=== PATIENT | male | born 1990 | race Hispanic/Latino ===

== ENCOUNTER 2017-05-25 08:58 | Emergency (ER) | payer OTHER, BC ==
[2017-05-25 08:59] VITALS: BMI 30.8
[2017-05-25 09:16] VITALS: BP 142/92; TEMP 97.9
--- NOTE | 2017-05-25 10:06 | ED PDOC ---
Arrival/HPI - General Chief Complaint: Psychiatric Evaluation Time Seen by Provider: 05/25/17 09:14 Historian: Patient, Other (significant other) - History of Present Illness Narrative History of Present Illness (Text): 05/25/17 10:02 Patient is a 26 year old male presents to ED with complaint of feeling "like I' m getting angrier more often" as well as more persistently depressed. He denies any physical injury or trauma recently, denies homicidal or suicidal ideation. Denies using drugs or alcohol. States that since he served in [employer] in the in 2011, when he returned he has had issues with "PTSD" and has had "anger issues" and depression. He states he did seek treatment at the [facility] in the past but has not had a consistent psychiatrist or therapist since then. He does not take any medications currently. States that over the past several months he feels that his feelings of anger and depression have become more frequent, thus he presented to ED for evaluation. Denies headache, denies chest pain or shortness of breath currently. Denies visual symptoms. Past Medical History - Past History Past History: No Previous - Infectious Disease Hx of Infectious Diseases: None - Tetanus Immunization Tetanus Immunization: Unknown - Cardiac Hx Cardiac Disorders: No - Pulmonary Hx Respiratory Disorders: No - Neurological Hx Neurological Disorder: Yes Hx Migraine: Yes Hx Transient Ischemic Attacks (TIA): Yes Other/Comment: TBI - HEENT Hx HEENT Disorder: No - Renal Hx Renal Disorder: No - Endocrine/Metabolic Hx Endocrine Disorders: No - Hematological/Oncological Hx Blood Disorders: No - Integumentary Hx Dermatological Disorder: No - Musculoskeletal/Rheumatological Hx Musculoskeletal Disorders: Yes Hx Back Pain: Yes Hx Falls: No - Gastrointestinal Hx Gastrointestinal Disorders: No - Genitourinary/Gynecological Hx Genitourinary Disorders: No - Psychiatric Hx Psychophysiologic Disorder: Yes Hx Depression: Yes Hx Substance Use: No - Anesthesia Hx Anesthesia: No - Suicidal Assessment Feels Threatened In Home Enviroment: No Family/Social History Family/Social History: Unknown Family HX Smoking Status: Current Some Days Smoker Hx Alcohol Use: Yes (Drinks Beer/Wine Daily) Hx Substance Use: No Allergies/Home Meds Allergies/Adverse Reactions: Allergies No Known Allergies Allergy (Verified 05/25/17 09:16) Home Medications: Home Meds Medication Instructions Recorded Confirmed Acetaminophen/Butalbital/Caf 1 tab PO PRN PRN 05/25/17 05/25/17 [Fioricet] Aspirin [Aspirin Chewable] 81 mg PO DAILY 05/25/17 05/25/17 Atorvastatin [Lipitor] 40 mg PO DAILY 05/25/17 05/25/17 Cholecalciferol [Vitamin D] 50,000 iu PO MWF 05/25/17 05/25/17 Colesevelam HCl [Welchol] 625 mg PO BID 05/25/17 05/25/17 Dexlansoprazole [Dexilant] 60 mg PO BID 05/25/17 05/25/17 Topiramate [Topamax] 25 mg PO HS 05/25/17 05/25/17 Review of Systems - Review of Systems Constitutional: absent: Fatigue, Fevers Eyes: absent: Vision Changes, Eye Pain ENT: absent: Hearing Changes Respiratory: absent: SOB Cardiovascular: absent: Chest Pain Gastrointestinal: absent: Abdominal Pain, Nausea, Vomiting Genitourinary Male: absent: Dysuria Musculoskeletal: absent: Back Pain Skin: absent: Rash Neurological: absent: Headache, Dizziness, Focal Weakness Hemo/Lymphatic: absent: Easy Bleeding Psychiatric: Depression, Other (anger, no homicial ideation). absent: Anxiety, Suicidal Ideation Physical Exam Vital Signs Reviewed: Yes Vital Signs Temp Pulse Resp BP Pulse Ox 05/25/17 12:16 72 18 99 05/25/17 09:08 97.9 F 89 16 142/92 H 96 Temperature: Afebrile Appearance: Positive for: Non-Toxic Pain Distress: None Mental Status: Positive for: Alert and Oriented X 3 - Systems Exam Head: Present: Atraumatic Pupils: Present: PERRL Extroacular Muscles: Present: EOMI Mouth: Present: Moist Mucous Membranes Pharnyx: No: ERYTHEMA Neck: Present: Normal Range of Motion Respiratory/Chest: Present: Clear to Auscultation. No: Respiratory Distress Cardiovascular: Present: Regular Rate and Rhythm Abdomen: No: Distention Upper Extremity: Present: Normal ROM Lower Extremity: Present: Normal ROM Neurological: Present: Speech Normal, Motor Func Grossly Intact, Normal Sensory Function, Gait Normal Skin: Present: Warm Psychiatric: Present: Alert, Normal Insight, Normal Concentration, Anxious, Depressed Mood. No: Agitated, Suicidal Ideation, Homicidal Ideation, Hallucinations, Intoxicated Medical Decision Making ED Course and Treatment: Patient's history is supplemented by significant other at bedside. Patient is calm, cooperative in ED. Denies suicidal ideation. He is not aggressive or intoxicated in ED. There is no history of drug or alcohol abuse. No signs of acute trauma noted. He reports symptoms for several years, denies any acute stressors but states there has been a gradual worsening of symptoms. He states he currently does not see a therapist or psychiatrist. Currently does not take any medication. Patient was medically cleared for PES evaluation. Follow-up plan arranged with PES and patient. Patient requests medication until appointment next week. Xanax prescription discussed. Side effect profile reviewed. Will discharge with 3-4 day prescription for xanax. Disposition/Present on Arrival - Present on Arrival Any Indicators Present on Arrival: No History of DVT/PE: No History of Uncontrolled Diabetes: No Urinary Catheter: No History of Decub. Ulcer: No History Surgical Site Infection Following: None - Disposition Have Diagnosis and Disposition been Completed?: Yes Diagnosis: Anxiety Disposition: HOME/ ROUTINE Disposition Time: 12:00 Patient Plan: Discharge Condition: GOOD Additional Instructions: Follow-up with specialists as directed. For any headaches, chest pain, shortness of breath, unsteadiness, persistent or worsening of any symptoms, get rechecked. Take medication only as needed, only as directed until you follow-up with specialist. Do not drink or drive while taking this medication. Prescriptions: ALPRAZolam [Xanax] 0.25 mg PO BID PRN #8 tab PRN Reason: Anxiety Referrals: Mathew Paez MD [Primary Care Provider] - Follow up with primary Forms: [employer] ([employer]ux[employer]bour[employer]), WORK NOTE
[2017-05-25 12:17] VITALS: PULSE 72; RESP 18; O2SAT 99
== END 2017-05-25 12:16 | disposition home or self-care (01) ==
LOC: ED 08:58
DX: F41.9 Anxiety disorder, unspecified (principal)

== ENCOUNTER 2017-07-19 14:04 | Emergency (ER) | payer BC, OTHER ==
[2017-07-19 14:11] VITALS: BMI 29.5
[2017-07-19 14:12] VITALS: RESP 18; TEMP 97.8; O2SAT 100
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
--- NOTE | 2017-07-19 15:30 | CT ---
PROCEDURE: CT Cervical Spine without contrast HISTORY: Neck pain COMPARISON: None available. TECHNIQUE: Axial computed tomography images were obtained of the cervical spine without the use of intravenous contrast. Coronal and sagittal reformatted images were created and reviewed. Radiation dose: Total exam DLP = 514 mGy-cm. This CT exam was performed using one or more of the following dose reduction techniques: Automated exposure control, adjustment of the mA and/or kV according to patient size, and/or use of iterative reconstruction technique. FINDINGS: VERTEBRAE: No fracture. Normal alignment. No destructive bony lesion. DISCS/SPINAL CANAL/NEURAL FORAMINA: No significant central canal or neural foraminal stenosis. Discs heights are grossly preserved. PARASPINAL SOFT TISSUES: Unremarkable. OTHER FINDINGS: None. IMPRESSION: Unremarkable CT of the cervical spine.
[2017-07-19 16:16] VITALS: BP 134/78; PULSE 89
== END 2017-07-19 16:18 | disposition home or self-care (01) ==
LOC: ED 14:04
DX: S13.4XXA Sprain of ligaments of cervical spine, initial encounter (principal); W19.XXXA Unspecified fall, initial encounter; R51 Headache; E78.00 Pure hypercholesterolemia, unspecified
CPT/HCPCS: 70450; 72125; 96372; 99284; J1885

== ENCOUNTER 2017-10-31 18:25 | Inpatient (IN) | payer BC ==
[2017-10-31 18:25] VITALS: BMI 29.5
--- NOTE | 2017-10-31 19:12 | ED PDOC ---
Arrival/HPI - General Chief Complaint: Psychiatric Evaluation Time Seen by Provider: 10/31/17 18:39 Historian: Patient - History of Present Illness Narrative History of Present Illness (Text): 10/31/17 19:10 26-year-old male with a history of hyperlipidemia, PTSD presents today with depression and suicidal ideation. Patient states that he has been feeling depressed for a long time. Over the past week the patient just had a change in his Zoloft dose. Patient states it was increased from 50 mg to 100 mg. Patient denies chest pain or shortness of breath. Denies fevers or chills. Denies dizziness or weakness. Patient admits to drinking half a bottle of wine today. Patient states today he had a plan to [place]. Patient states that if he wanted to jump off the bridge he would've but instead he called his girlfriend and a friend of his and his friend called 911. Pt states he was just drunk and didnt mean what he said. Past Medical History - Provider Review Nursing Documentation Reviewed: Yes - Travel History Have you recently traveled outside [place] w/in the past 3 mons?: No - Past History Past History: No Previous - Infectious Disease Hx of Infectious Diseases: None - Tetanus Immunization Tetanus Immunization: Unknown - Cardiac Hx Cardiac Disorders: No - Pulmonary Hx Respiratory Disorders: No - Neurological Hx Neurological Disorder: Yes Hx Migraine: Yes Hx Transient Ischemic Attacks (TIA): Yes Other/Comment: TBI - HEENT Hx HEENT Disorder: No - Renal Hx Renal Disorder: No - Endocrine/Metabolic Hx Endocrine Disorders: No - Hematological/Oncological Hx Blood Disorders: No - Integumentary Hx Dermatological Disorder: No - Musculoskeletal/Rheumatological Hx Musculoskeletal Disorders: Yes Hx Back Pain: Yes Hx Falls: No - Gastrointestinal Hx Gastrointestinal Disorders: No - Genitourinary/Gynecological Hx Genitourinary Disorders: No - Psychiatric Hx Psychophysiologic Disorder: Yes Hx Depression: Yes Hx Post Traumatic Stress Disorder: Yes Hx Substance Use: No - Anesthesia Hx Anesthesia: No - Suicidal Assessment Feels Threatened In Home Enviroment: No Family/Social History - Physician Review Nursing Documentation Reviewed: Yes Family/Social History: Unknown Family HX Smoking Status: Current Some Days Smoker Hx Alcohol Use: Yes (Drinks Beer/Wine Daily) Hx Substance Use: No Allergies/Home Meds Allergies/Adverse Reactions: Allergies No Known Allergies Allergy (Verified 11/01/17 00:59) Home Medications: Home Meds Medication Instructions Recorded Confirmed Acetaminophen/Butalbital/Caf 1 tab PO PRN PRN 05/25/17 11/01/17 [Fioricet] Aspirin [Aspirin Chewable] 81 mg PO DAILY 05/25/17 11/01/17 Atorvastatin [Lipitor] 40 mg PO DAILY 05/25/17 11/01/17 Cholecalciferol [Vitamin D] 50,000 iu PO MWF 05/25/17 11/01/17 Dexlansoprazole [Dexilant] 60 mg PO DAILY 05/25/17 11/01/17 Topiramate [Topamax] 25 mg PO HS 05/25/17 11/01/17 Amphetamine Sulfate [Evekeo] 10 mg PO PRN PRN 07/19/17 11/01/17 Sertraline [Zoloft] 100 mg PO DAILY 07/19/17 11/01/17 Temazepam [Restoril] 15 mg PO PRN PRN 07/19/17 11/01/17 Icosapent Ethyl [Vascepa] 2 gra PO BID 10/31/17 11/01/17 Review of Systems - Review of Systems Constitutional: absent: Fatigue, Fevers Respiratory: absent: SOB, Cough Cardiovascular: absent: Chest Pain, Palpitations Gastrointestinal: absent: Abdominal Pain, Nausea, Vomiting Genitourinary Male: absent: Dysuria Musculoskeletal: absent: Arthralgias Skin: absent: Rash, Pruritis Psychiatric: Depression, Suicidal Ideation Physical Exam Vital Signs Reviewed: Yes Vital Signs Temp Pulse Resp BP Pulse Ox 10/31/17 23:37 80 20 116/64 96 10/31/17 19:12 98 H 10/31/17 18:40 98.1 F 125 H 20 149/97 H 97 Temperature: Afebrile Blood Pressure: Normal Pulse: Tachycardic Respiratory Rate: Normal Appearance: Positive for: Well-Appearing, Non-Toxic, Comfortable Pain Distress: None Mental Status: Positive for: Alert and Oriented X 3 - Systems Exam Head: Present: Atraumatic Pupils: Present: PERRL Extroacular Muscles: Present: EOMI Mouth: Present: Moist Mucous Membranes Neck: Present: Normal Range of Motion Respiratory/Chest: Present: Clear to Auscultation Cardiovascular: Present: Regular Rate and Rhythm Abdomen: No: Tenderness Upper Extremity: Present: Normal ROM Lower Extremity: Present: Normal ROM. No: Edema Neurological: Present: GCS=15, Speech Normal Skin: Present: Warm, Dry, Normal Color. No: Rashes Psychiatric: Present: Alert, Oriented x 3, Depressed Mood, Suicidal Ideation. No: Homicidal Ideation Medical Decision Making ED Course and Treatment: 10/31/17 19:13 Patient is nontoxic well-appearing in no distress vital signs are stable. pt placed on 1:1 for SI precaution CBC WNL CMP WNL Tylenol WNL Salicylate WNL Alcohol level: 199 Urine drug screen positive amphetamines UA; wnl cxr: wnl ekg NSR at 98 b/m no st elevations, normal axis, normal intervals. pt is medically cleared for PES evaluation 10/31/17 20:46 case signed out to dr. correa pending PES evaluation and disposition. - Lab Interpretations Lab Results: 10/31/17 18:42 10/31/17 18:42 Lab Results 10/31/17 19:10: Urine Opiates Screen Negative, Urine Methadone Screen Negative, Ur Barbiturates Screen Negative, Ur Phencyclidine Scrn Negative, Ur Amphetamines Screen Positive H, U Benzodiazepines Scrn Negative, U Oth Cocaine Metabols Negative, U Cannabinoids Screen Negative 10/31/17 19:10: Urine Color Light yellow, Urine Appearance Clear, Urine pH 6.0, Ur Specific [place] <= 1.005, Urine Protein Negative, Urine Glucose (UA) Negative, Urine Ketones Negative, Urine Blood Negative, Urine Nitrate Negative, Urine Bilirubin Negative, Urine Urobilinogen 0.2, Ur Leukocyte Esterase Negative 10/31/17 18:42: Alcohol, Quantitative 199 H 10/31/17 18:42: Salicylates < 1 L, Acetaminophen < 10.0 L 10/31/17 18:42: Sodium 144, Potassium 4.2, Chloride 109 H, Carbon Dioxide 18 L, Anion Gap 22 H, BUN 12, Creatinine 0.8, Est GFR ( Amer) > 60, Est GFR ( Non-Af Amer) > 60, Random Glucose 101, Calcium 10.6 H, Total Bilirubin 0.6, AST 44, ALT 31, Alkaline Phosphatase 123, Total Protein 9.0 H, Albumin 5.1 H, Globulin 3.9, Albumin/Globulin Ratio 1.3 10/31/17 18:42: WBC 9.6, RBC 5.05, Hgb 15.6, Hct 45.0, MCV 89.1, MCH 30.9, MCHC 34.7, RDW 12.7, Plt Count 282, MPV 9.5, Gran % 66.9, Lymph % (Auto) 27.9, [place] % (Auto) 4.1, Eos % (Auto) 0.9 L, Baso % (Auto) 0.2, Gran # 6.42, Lymph # (Auto ) 2.7, [place] # (Auto) 0.4, Eos # (Auto) 0.1, Baso # (Auto) 0.02 - RAD Interpretation Radiology Orders: 10/31/17 18:40 CHEST PORTABLE [RAD] Stat - Medication Orders Current Medication Orders: Acetaminophen (Tylenol 325mg Tab) 650 mg PO Q6H PRN PRN Reason: Pain, moderate (4-7) Last Admin: 11/01/17 00:30 Dose: 650 mg [facility] Pain/Vitals Document 11/01/17 00:30 KM (Rec: 11/01/17 00:31 KM [id number]) Presence of Pain Presence of Pain Yes Pain Scale Used Pain Scale Used Numeric Location Pain Location Body Japanese Tutor Description Constant Intensity 3 Re-Assess: [facility] Pain/Vitals Document 11/01/17 01:30 KM (Rec: 11/01/17 03:[address] [facility] [place]-PSYCHDR) Pain Reassessment Is This A Pain ReAssessment? Yes Presence of Pain Presence of Pain Yes Pain Scale Used Pain Scale Used Numeric Location Pain Location Body Japanese Tutor Description Constant Intensity 2 Scale Used Numeric Al Hydrox/Mg Hydrox/Simethicone (Maalox Plus 30 Ml) 30 ml PO DAILY PRN PRN Reason: Indigestion / Heartburn Aspirin (Aspirin Chewable) 81 mg PO DAILY [facility] Last Admin: 11/01/17 09:20 Dose: 81 mg Atorvastatin Calcium (Lipitor) 40 mg PO DAILY [facility] Last Admin: 11/01/17 09:20 Dose: 40 mg Ergocalciferol (Drisdol 50,000 Intl Units Cap) 1 cap PO [id number] [facility] Last Admin: 11/01/17 09:20 Dose: 1 cap Folic Acid (Folic Acid) 1 mg PO DAILY [facility] Last Admin: 11/01/17 09:20 Dose: 1 mg Lorazepam (Ativan) 2 mg PO Q6H PRN; Protocol PRN Reason: Anxiety Lorazepam (Ativan) 2 mg IM Q6H PRN; Protocol PRN Reason: Severe Agitation Magnesium Hydroxide (Milk Of Magnesia) 30 ml PO DAILY PRN PRN Reason: Constipation Non-Formulary Medication (Icosapent Ethyl [Vascepa]) 2 gra PO BID [facility] Last Admin: 11/01/17 18:44 Dose: Pantoprazole Sodium (Protonix Ec Tab) 40 mg PO 0600,1600 [facility] Last Admin: 11/01/17 17:43 Dose: 40 mg Sertraline HCl (Zoloft) 100 mg PO DAILY [facility] Last Admin: 11/01/17 09:20 Dose: 100 mg Thiamine HCl (Vitamin B1 Inj) 100 mg IM DAILY [facility] Last Admin: 11/01/17 09:21 Dose: 100 mg IM Administration Charges Document 11/01/17 09:21 RGO (Rec: 11/01/17 09:21 RGO [id number]) Injection Site MAR Injection Site Left Deltoid Charges for Administration # of IM Administrations 1 Topiramate (Topamax) 25 mg PO HS [place] PRN Reason: Protocol Last Admin: 11/01/17 21:21 Dose: 25 mg Behavioural Document 11/01/17 21:21 TW (Rec: 11/01/17 21:21 [id number]) Maintenance Maintenance Dose Yes Re-Assess: Reassess Psych Meds Document 11/01/17 22:21 TW (Rec: 11/01/17 22:43 [id number]) Reassess Psych Med Effective Ziprasidone (Geodon Cap) 20 mg PO Q6H PRN; Protocol PRN Reason: Agitation Ziprasidone (Geodon Inj) 20 mg IM Q6H PRN; Protocol PRN Reason: Severe Agitation Zolpidem Tartrate (Ambien) 5 mg PO HS PRN; Protocol PRN Reason: Insomnia Last Admin: 11/01/17 21:21 Dose: 5 mg Behavioural Document 11/01/17 21:21 TW (Rec: 11/01/17 21:21 [id number]) Maintenance Maintenance Dose Yes Re-Assess: Reassess Psych Meds Document 11/01/17 22:21 TW (Rec: 11/01/17 22:43 [id number]) Reassess Psych Med Effective Discontinued Medications Zolpidem Tartrate (Ambien) 10 mg PO STAT STA PRN Reason: Protocol Stop: 10/31/17 22:15 Last Admin: 10/31/17 22:39 Dose: Not Given Non-Admin Reason: Patient Refused Disposition/Present on Arrival - Present on Arrival Any Indicators Present on Arrival: No History of DVT/PE: No History of Uncontrolled Diabetes: No Urinary Catheter: No History of Decub. 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
[2017-10-31 19:17] LABS: BASO # 0.02 K/mm3 (0.0-2.0); BASO % 0.2 % (0.0-3.0); EOS # 0.1 (0.0-0.7); EOS % 0.9 % (1.5-5.0); GRAN # 6.42 (1.4-6.5); GRAN % 66.9 % (50.0-68.0); HEMOGLOBIN 15.6 g/dL (14.0-18.0); LYMPH # 2.7 (1.2-3.4); LYMPH % 27.9 % (22.0-35.0); MEAN CELL VOLUME 89.1 fl (80.0-105.0); MEAN CORPUSCULAR HEMOGLOBIN 30.9 pg (25.0-35.0); MEAN CORPUSCULAR HGB CONC 34.7 g/dl (31.0-37.0); MEAN PLATELET VOLUME 9.5 fl (7.0-11.0); MONO # 0.4 (0.1-0.6); MONO % 4.1 % (1.0-6.0); RBC 5.05 10^6/uL (3.5-6.1); RED CELL DISTRIBUTION WIDTH 12.7 % (11.5-14.5); WHITE BLOOD COUNT 9.6 10^3/ul (4.5-11.0)
[2017-10-31 19:27] LABS: URINE BILIRUBIN NEGATIVE (NEGATIVE); URINE BLOOD NEGATIVE (NEGATIVE); URINE GLUCOSE (UA) NEGATIVE (NEGATIVE); URINE LEUKOCYTE ESTERASE NEGATIVE Leu/uL (NEGATIVE); URINE NITRATE NEGATIVE (NEGATIVE); URINE PROTEIN NEGATIVE mg/dL (<30 mg/dL); URINE UROBILINOGEN 0.2 E.U./dL (<1 E.U./dL)
[2017-10-31 19:27] LABS: ALB/GLOB RATIO 1.3 (1.1-1.8); ALBUMIN 5.1 g/dL (3.0-4.8); ALT/SGPT 31 U/L (7-56); AST/SGOT 44 U/L (17-59); BLOOD UREA NITROGEN 12 mg/dL (7-21); CALCIUM 10.6 mg/dL (8.4-10.5); GFR AFRICAN-AMERICAN > 60; GFR NON-AFRICAN AMERICAN > 60
[2017-10-31 19:28] LABS: URINE APPEARANCE CLEAR (CLEAR); URINE COLOR LIGHT YELLOW (YELLOW)
[2017-10-31 19:28] LABS: ACETAMINOPHEN < 10.0 ug/ml (10.0-20.0); SALICYLATE < 1 mg/dL (2.0-20.0)
[2017-10-31 19:40] LABS: BARBITURATES, UR NEGATIVE (NEGATIVE); BENZODIAZEPINES, UR NEGATIVE (NEGATIVE); OPIATES, UR NEGATIVE (NEGATIVE); PHENCYCLIDINE, UR NEGATIVE (NEGATIVE)
[2017-11-01] MEDS ORDERED: Alum-Mag Hydrox-Simethicone Susp (30 mL) PO PRN (00:15)
[2017-11-01] MEDS ORDERED: Magnesium Hydroxide Susp 30 ml UD PO PRN (00:15)
[2017-11-01 01:11] VITALS: O2SAT 97
--- NOTE | 2017-11-01 02:33 | PCM.BM ---
<Felisa Bergeronbraeden - Last Filed: 11/01/17 02:30> Treatment Plan Problems - Problems identified on initial assessmt Suicidal Ideation Date Initiated: 11/01/17 Time Initiated: Assessment reference: NA Status: Active Ineffective Coping Date Initiated: 11/01/17 Time Initiated: 02: Assessment reference: NA Status: Active Hopelessness/Helplessness Date Initiated: 11/01/17 Time Initiated: 02: Assessment reference: NA Status: Active Treatment assets and liabiliti Patient Assests: adapts well, cooperative, educated, self-reliant, ADL independent, physically healthy, good support system, negotiates basic needs, financial stabiity, cognitively intact, good interpersonal skills Patient Liabilities: physical pain, substance abuse, medical problems - Milieu Protocol Maintain good personal hygiene: daily Encourage regular showers, daily Remind patient to perform daily oral care, daily Assist patient to perform ADL's Conduct patient checks and document Observation sheet: Q15 minutes Maintain personal safety: every shift Educate patient to report safety concerns to staff, every shift Monitor environment for contraband/sharps Medication safety: Monitor for expected outcome, potential side effects: every shift, Assess barriers to learning: every shift, Assess readiness for medication education: every shift Discharge/Continuing Care - Education Needs Education Needs: Patient Medication, Patient Diagnosis/Disease Process, Patient Coping Skills, Patient Community resources, Patient Activities of Daily Living, Patient Pain, Patient Nutrition, Patient Health Practices/Safety, Patient Aftercare Safety Plan - Discharge Discharge Criteria: Free of Suicidal thoughts, Normal sleep pattern <Natalia Peraza - Last Filed: 11/01/17 15:58> - Diagnosis (1) Mood disorder Status: Acute Interventions: 11/01/17 15:59 Psychoeducation Psychopharmacology/adjustment of medications as needed/ monitoring possible side effects Evaluate pt on daily basis Compliance with medications and follow up appointments Suicide and homicide risk assessment and prevention Relapse prevention Reduction of symptoms Improve functional status Family involvement As outpatient: cognitive behavioral therapy (2) Alcohol abuse Status: Acute Interventions: 11/01/17 15:59 Maintaining sobriety Relapse prevention Possible rehabilitation Motivational interviewing possible AA meetings <Josefina Owens - Last Filed: 11/02/17 07:53> Family Contact Family involvement: Family/SO is involved Family contact: Patient agrees to contact Family contact name: Lynn Lees(girlfriend)
[2017-11-01 08:13] LABS: BASO # 0.02 K/mm3 (0.0-2.0); BASO % 0.3 % (0.0-3.0); EOS # 0.1 (0.0-0.7); EOS % 1.7 % (1.5-5.0); GRAN # 4.86 (1.4-6.5); GRAN % 62.9 % (50.0-68.0); HEMOGLOBIN 14.5 g/dL (14.0-18.0); LYMPH # 2.2 (1.2-3.4); MEAN CELL VOLUME 89.9 fl (80.0-105.0); MEAN CORPUSCULAR HEMOGLOBIN 30.5 pg (25.0-35.0); MEAN PLATELET VOLUME 9.2 fl (7.0-11.0); MONO # 0.5 (0.1-0.6); MONO % 6.1 % (1.0-6.0); RBC 4.75 10^6/uL (3.5-6.1); RED CELL DISTRIBUTION WIDTH 12.9 % (11.5-14.5); WHITE BLOOD COUNT 7.7 10^3/ul (4.5-11.0)
[2017-11-01 08:27] LABS: ALB/GLOB RATIO 1.2 (1.1-1.8); ALBUMIN 4.6 g/dL (3.0-4.8); ALT/SGPT 30 U/L (7-56); AMYLASE 69 U/L (35-125); AST/SGOT 41 U/L (17-59); BILIRUBIN,DIRECT 0.4 mg/dL (0.0-0.4); BLOOD UREA NITROGEN 14 mg/dL (7-21); CALCIUM 9.8 mg/dL (8.4-10.5); GFR AFRICAN-AMERICAN > 60; GFR NON-AFRICAN AMERICAN > 60; GLUCOSE,FASTING 95 mg/dL (65-110); HDL CHOLESTEROL 29 mg/dL (29-60); LIPASE 210 U/L (23-300); MAGNESIUM 2.1 mg/dL (1.7-2.2)
[2017-11-01 08:36] LABS: LDL CHOLESTEROL 85 mg/dL (0-129)
[2017-11-01] MEDS: ICOSAPENT ETHYL PO SCH ×3 (08:37→18:44)
[2017-11-01 08:51] LABS: FREE T4 0.87 ng/dL (0.78-2.19); T4 6.6 ug/dL (5.5-11.0)
[2017-11-01] MEDS: Pantoprazole 40 mg EC Tab PO SCH ×2 (09:20→17:43)
[2017-11-01] MEDS: Thiamine 100 mg/ml Inj IM SCH (09:21)
[2017-11-01] MEDS ORDERED: Ergocalciferol 50,000 Intl Units Cap PO SCH (10:00)
--- NOTE | 2017-11-01 10:25 | RAD ---
HISTORY: pes eval COMPARISON: 06/28/2016 FINDINGS: LUNGS: No active pulmonary disease. PLEURA: No significant pleural effusion identified, no pneumothorax apparent. CARDIOVASCULAR: Normal. OSSEOUS STRUCTURES: No significant abnormalities. VISUALIZED UPPER ABDOMEN: Normal. OTHER FINDINGS: None. IMPRESSION: No active disease.
--- NOTE | 2017-11-01 13:06 | CARD ---
APPROVED REPORT EKG Measurement Heart [id number] CT [id number] <Conclusion> Normal sinus rhythm Normal ECG
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
[2017-11-02 07:12] VITALS: BP 106/68; PULSE 61; RESP 20; TEMP 97.7
[2017-11-02] MEDS: Pantoprazole 40 mg EC Tab PO SCH (08:51)
[2017-11-02] MEDS: Thiamine 100 mg/ml Inj IM SCH (08:55)
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
--- NOTE | 2017-11-02 15:09 | PCM.PYCHDC ---
Mental Status Examination - Mental Status Examination Orientation: Person, Place, Situation, Time Memory: Intact Mood: Neutral Affect: Constricted (but reactive, mood congruent) Speech: Appropriate Attention: WNL Concentration: WNL Association: WNL Fund of Knowledge: WNL Formal Thought Process: No Impairment Description of patient's judgement and insight: Pt has improved insight into mental and medical illness, pt was compliant with medications and unit rules and regulations, pt was going to groups, was calm, cooperative, socially appropriate, no behavioral incidents, no agitation, no aggression. Psychotic Thoughts and Behaviors: Pt denied v/a/t hallucinations, denied paranoid ideations, pt does not appear to be psychotic, and thought process is goal directed. Suicidal Ideation: No Current Homicidal Ideation?: No Plan: pt adamantly denied thoughts of harming self or others denied intent or plan. Discharge Summary - Discharge Note Reason for Hospitalization: pt reluctantly signed consent for treatment, pt was admitted for evaluation of depressive symptoms, possible suicidal ideation Psychiatric History (includes Medical, Family, Personal Hx): see HPI Laboratory Data: Abnormal Lab Results 11/01/17 08:00 RPR Nonreactive Consultations:: List each consultation separately and include: 1. Reason for request. 2. Findings. 3. Follow-up Consultations: pt was seen by medical team, input appreciated Summary of Hospital Course include:: 1. Description of specific treatment plan utilized for patients during their course of treatmen. 2. Summarize the time- course for resolution of acute symptoms and/or regressed behaviors. 3. Describe issues identified and worked on during hospitalization. 4. Describe medication utilized. 5. Describe medical problems identified and treated. 6. Reassessment of suicide risk Summary of Hospital Course: shortly pt is 26yo male with self reported h/o depression and anxiety, denied previous psychiatric admissions, denied previous suicidal attempts, pt currently under care of , was admitted to the psychiatric inpatient unit for evaluation and observation of possible suicidal ideation. based on PES report ED: "pt referred by his friend for a psych evaluation due to depressed mood and reporting that he was thinking of jumping [place] but instead call his girlfriend and a friend who then jose 911 to pick up man pt in his home" pt was seen and examined at the treatment team meeting initially and today for follow up. Overall pt presented well, was making jokes, it seems pt was minimizing his symptoms. pt said he was seeing as outpatient, who increased his Zoloft to 100mg recently, pt said that he tolerates meds well, and he felt "unbelievably" happy. pt said he was not having problems at his job, said that he likes to be involved in patient care (pt works at [employer]), pt said that he is happy in his relationship with his girlfriend. pt said yesterday it was his routine day, he woke up in good mood, then he drove his girlfriend to work, then went to coffee shop, then came back home and watch some TV, then he went to buy some wine "to relax" (pt had approximately 5glassess of wine), pt after made a call to his friend who is a police specialist Jabier Olivarez. "we just talked and he seems to be the one who is good, he became a police specialist, I was asking him some questions", then pt said he went outside to take a walk with dogs and forgot his cellphone at home when he came back home "I found to have 13 text messages from Jabier" ambulance showed up and pt was brought for evaluation to the ED. 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 pt said he was not depressed "I was unbelievably happy", he denied that he had any relationship problems, pt denied being anxious, denied worsening of PTSD ( pt was dx with PTSD after being in in [place]. pt said he cannot tolerate loud noise. pt denied any psychotic symptoms, denied paranoid ideation, pt does not appear to be psychotic. pt said that he cut down on his drinking "a lot", pt said occasionally he could have a glass of wine or beer. pt said before he was drinking whisky "like water ". Pt smokes cigarettes "occasionally", denied any heavy drugs use. past psychiatric h/o: one short psych admission (24hr at [facility] about a year ago). pt denied previous psychiatric admissions. Zoloft was increased to 100mg June 2017 and is effective. PT reports hx of concentrating when studying for tests and was prescribed amphetamines, which are making him more irritable. PT reports only taking restoril once per week. PT reports taking Topomax to prevent headaches. Medical h/o: h/o TIA, h/o headaches, hyperlipidemia. Family h/o: pt's mother and brother have h/o MDD, on zoloft, pt's uncle is institutionalized for schizophrenia. not known suicidal attempts. Collaterals appreciated, obtained by [employer]. Collaterals from pt's friend a police specialist Jabier Olivarez as per collaterals, pt is not often talks to Jabier, yesterday at the evening pt called him and was saying that he is about to lose his job and relationship ( but pt reported that he was "unbelievably happy"), pt made statement "as per Jabier pt's boss was concerned about pt's mood symptoms and wants pt to have some therapy. as per pt's girlfriend Heide, pt was doing well, pt never verbalized thoughts of harming self or others. but it is ? about the statement about [place] jump threat. 11/01/17 08:00 11/01/17 08:00 Lab Results 11/01/17 08:00: Free T4 0.87, Thyroxine (T4) 6.6, TSH 3rd Generation 1.42 11/01/17 08:00: 25-OH Vitamin D Total 26.1 L 11/01/17 08:00: Hemoglobin A1c 5.6 11/01/17 08:00: Sodium 145, Potassium 4.1, Chloride 108 H, Carbon Dioxide 24, Anion Gap 18, BUN 14, Creatinine 0.9, Est GFR ( Amer) > 60, Est GFR (Non- Af Amer) > 60, Random Glucose 95, Fasting Glucose 95, Calcium 9.8, Magnesium 2.1 , Total Bilirubin 0.5, Direct Bilirubin 0.4, AST 41, ALT 30, Alkaline Phosphatase 117, Total Protein 8.3, Albumin 4.6, Globulin 3.7, Albumin/Globulin Ratio 1.2, Triglycerides 343 H, Cholesterol 181, LDL Cholesterol Direct 85, HDL Cholesterol 29, Amylase 69, Lipase 210 11/01/17 08:00: WBC 7.7, RBC 4.75, Hgb 14.5, Hct 42.7, MCV 89.9, MCH 30.5, MCHC 34.0, RDW 12.9, Plt Count 246, MPV 9.2, Gran % 62.9, Lymph % (Auto) 29.0, [place] % (Auto) 6.1 H, Eos % (Auto) 1.7, Baso % (Auto) 0.3, Gran # 4.86, Lymph # (Auto ) 2.2, Kane # (Auto) 0.5, Eos # (Auto) 0.1, Baso # (Auto) 0.02 10/31/17 19:10: Urine Opiates Screen Negative, Urine Methadone Screen Negative, Ur Barbiturates Screen Negative, Ur Phencyclidine Scrn Negative, Ur Amphetamines Screen Positive H, U Benzodiazepines Scrn Negative, U Oth Cocaine Metabols Negative, U Cannabinoids Screen Negative 10/31/17 19:10: Urine Color Light yellow, Urine Appearance Clear, Urine pH 6.0, Ur Specific [place] <= 1.005, Urine Protein Negative, Urine Glucose (UA) Negative, Urine Ketones Negative, Urine Blood Negative, Urine Nitrate Negative, Urine Bilirubin Negative, Urine Urobilinogen 0.2, Ur Leukocyte Esterase Negative 10/31/17 18:42: Alcohol, Quantitative 199 H 10/31/17 18:42: Salicylates < 1 L, Acetaminophen < 10.0 L 10/31/17 18:42: Sodium 144, Potassium 4.2, Chloride 109 H, Carbon Dioxide 18 L, Anion Gap 22 H, BUN 12, Creatinine 0.8, Est GFR ( Amer) > 60, Est GFR ( Non-Af Amer) > 60, Random Glucose 101, Calcium 10.6 H, Total Bilirubin 0.6, AST 44, ALT 31, Alkaline Phosphatase 123, Total Protein 9.0 H, Albumin 5.1 H, Globulin 3.9, Albumin/Globulin Ratio 1.3 10/31/17 18:42: WBC 9.6, RBC 5.05, Hgb 15.6, Hct 45.0, MCV 89.1, MCH 30.9, MCHC 34.7, RDW 12.7, Plt Count 282, MPV 9.5, Gran % 66.9, Lymph % (Auto) 27.9, Kane % (Auto) 4.1, Eos % (Auto) 0.9 L, Baso % (Auto) 0.2, Gran # 6.42, Lymph # (Auto ) 2.7, Kane # (Auto) 0.4, Eos # (Auto) 0.1, Baso # (Auto) 0.02 Vital Signs Temp Pulse Pulse Resp BP Pulse Ox 11/01/17 07:00 97.3 F L 90 18 109/63 11/01/17 01:13 95 H 18 11/01/17 00:00 97.8 F 95 H 18 120/73 97 10/31/17 23:37 80 20 116/64 96 10/31/17 19:12 98 H 10/31/17 18:40 98.1 F 125 H 20 149/97 H 97 after the first assessment and treatment plan discussion pt submitted 48hr notice, requesting discharge, then pt rescinded it later on. yesterday pt was restless, was constantly walking, not able to accept his admission to the psychiatric inpatient unit was intrusive, was keep asking the same question when he will be discharged. this mortgage underwriter needed to have at least 24 hr of observation in order to make the decision about pt's readiness to be discharged. based on report from the Nursing staff and PCP, pt presented well yesterday, had a good night sleep, no agitation or aggression, no behavioral issues. pt was seen 11/02/17 for follow up pt presented much calmer today said that he had a good night sleep, said he attend evening groups pt said that "I feel much better" pt also said "I need to have help about my alcohol abuse, I spoke to my friends , may be I need to go to AA meetings". pt said that he does not want to go back to 's office for follow up but found other psychiatrist (see notes). pt denied being depressed, denied any thoughts of harming self or others, when this mortgage underwriter asked should she be worried about pt's safety, pt said "I think you should be worried ONLY for me running away from this place fast and twist my ankle...". pt denied any angry feelings towards nobody, "I feel a lot of people worried about me, I know they care...", denied any angry feelings towards the police specialist Jabier Olivarez who called 911 even if "It was exaggerated". this mortgage underwriter asked where the statement about [place] came from, pt said that "I made a comment that I don't want to kill myself, but if I would have those thoughts [place] and [place] know", pt adamantly denied thoughts of harming self or others. pt might benefit from staying in the hospital longer, but pt refused to do so, will leave AMA. pt has future oriented plans "to attend natural gas plant technician program this summer", pt wants to be a bagman/woman or police specialist. At the time of the discharge pt denied been depressed, denied thoughts of harming self or others, denied psychotic symptoms, and pt does not appeared to be psychotic, denied been anxious, pt is not in imminent danger to self or others, will be following up with new psychiatrist, information about follow up appointment, time and address provided to the pt, it is patient responsibility to follow up with outpatient clinic, PMD as well as specialists (see SW note for more detailed information). In case pt will need to obtain results of studies pending at discharge pt was provided with contact information of Psychiatric Inpatient unit [phone] as well as Medical Record Department [phone]. AA meetings treatment program information was provided by the pt does not want to be on naltrexone, because "I cut down a lot, I don't have any cravings". pt has all prescriptions home pt was advised not to take amphetamines, stay away from drugs and alcohol and take meds as prescribed, pt was educated about safety plan in case of worsening of symptoms or in case of suicidal or homicidal ideation call 911 or go to the nearest ER, pt verbalized understanding. - Diagnosis (1) Mood disorder Status: Acute Priority: High (2) Alcohol abuse Status: Acute Priority: Medium - Final Diagnosis (DSM 5) Condition upon Discharge: FAIR Disposition: AGAINST MEDICAL ADVICE Follow-up Treatment Plan: At the time of the discharge pt denied been depressed, denied thoughts of harming self or others, denied psychotic symptoms, and pt does not appeared to be psychotic, denied been anxious, pt is not in imminent danger to self or others, will be following up with new psychiatrist, information about follow up appointment, time and address provided to the pt, it is patient responsibility to follow up with outpatient clinic, PMD as well as specialists (see SW note for more detailed information). In case pt will need to obtain results of studies pending at discharge pt was provided with contact information of Psychiatric Inpatient unit [phone] as well as Medical Record Department [phone]. AA meetings treatment program information was provided by the pt does not want to be on naltrexone, because "I cut down a lot, I don't have any cravings". pt has all prescriptions home pt was advised not to take amphetamines, stay away from drugs and alcohol and take meds as prescribed, pt was educated about safety plan in case of worsening of symptoms or in case of suicidal or homicidal ideation call 911 or go to the nearest ER, pt verbalized understanding. - Smoking Cessation Smoking Cessation Medication prescribed: No Reason for not providing: denies smoking
== END 2017-11-02 11:36 | disposition left against medical advice (07) | DRG 885 ==
LOC: ED 18:25 → ERH 22:35 → PSYC 23:52
PROVIDERS: ADMIT Psychiatry & Neurology Psychiatry; ATTEND Psychiatry & Neurology Psychiatry
DX: F39 Unspecified mood [affective] disorder (principal); E87.2 Acidosis; R45.851 Suicidal ideations; E78.00 Pure hypercholesterolemia, unspecified; F10.129 Alcohol abuse with intoxication, unspecified; Y90.6 Blood alcohol level of 120-199 mg/100 ml; F43.10 Post-traumatic stress disorder, unspecified; G43.909 Migraine, unspecified, not intractable, without status migrainosus; E78.1 Pure hyperglyceridemia; E55.9 Vitamin D deficiency, unspecified; E66.9 Obesity, unspecified; Z68.29 Body mass index [BMI] 29.0-29.9, adult; Z86.73 Personal history of transient ischemic attack (TIA), and cerebral infarction without residual deficits; Z87.820 Personal history of traumatic brain injury; Z81.8 Family history of other mental and behavioral disorders